=== PATIENT | female | born 1975 | race African-American/Black ===

== ENCOUNTER 2020-07-02 10:07 | Inpatient (IN) ==
[2020-07-02 11:24] LABS: Basophils % 0.1 % (0.0-0.8); Hematocrit 41.1 VOL% (35.7-47.0); Immature Granulocytes % 0.4 %; Immature Granulocytes Absolute 0.03 #; Lymphocytes # 1.2 10*3/uL (1.4-4.0); Lymphocytes % 16.9 % (21.3-54.2); Mean Corpuscular HGB Conc 34.1 GM/DL (32-36); Mean Platelet Volume 9.7 FL (9.6-12.0); Monocytes % 6.3 % (1.7-12.7); Neutrophils % 76.3 % (38.7-73.9); Platelet Count 196 T/CUMM (130-400); Red Blood Count 4.67 MC/CUMM (3.8-5.5); Red Cell Distribution Width 12.8 % (9.3-17.3); White Blood Count 7.3 T/CUMM (4-12)
[2020-07-02 11:42] LABS: PT Patient Result 10.7 SECS (9.8-11.9)
[2020-07-02 11:53] LABS: Albumin 3.4 G/DL (3.4-5.0); Bilirubin,Total 0.6 MG/DL (0.2-1.0); Calcium 7.9 MG/DL (8.5-10.1); Ferritin 470.2 ng/ml (8-252); Osmolality,Calculated 271.2 MOS/KG (273-304); Total Protein 7.5 G/DL (6.4-8.3)
[2020-07-02 12:03] LABS: Bacteria,Urine Moderate /HPF (Few); Bilirubin,Urine Negative (Negative); Blood, Urine Negative (Negative); Glucose,Urine (UA) Negative (Negative); Hyaline Casts,Urine 29 /LPF (0-3); Ketones,Urine 5 mg/dL (Negative); Mucus,Urine Few /LPF (Occasional); Nitrite,Urine Negative (Negative); Protein,Urine 30 MG/DL; RBC,Urine 2 /HPF (0-4); Squamous Epithelial Cell,Urine Occasional /HPF (0-10); Urine Appearance Slightly Hazy (Clear); Urine Color Amber (Yellow); Urine Specific Gravity 1.026 (1.001-1.035); Urine Urobilinogen < 2.0 EU/DL (0.2-1.0); WBC,Urine 3 /HPF (0-6)
[2020-07-02 12:14] LABS: Anisocytosis Slight; Platelet Estimate Normal
[2020-07-02] MEDS ORDERED: GLUCAGON 1 MG VIAL IM PRN (13:42)
[2020-07-02] MEDS ORDERED: DEXTROSE 50% 25 GM/50 ML VIAL IV PRN (13:42)
[2020-07-02] MEDS ORDERED: ACETAMINOPHEN 325 MG TABLET PO PRN (13:42)
[2020-07-02] MEDS ORDERED: ONDANSETRON 4 MG/2 ML VIAL IV PRN (13:42)
[2020-07-02] MEDS: INSULIN LISPRO 100 UNIT/ML SUBCUT SCH (15:50)
[2020-07-02] MEDS: DEXAMETHASONE 4 MG/1 ML VIAL IV SCH (16:00)
[2020-07-02] MEDS: ASCORBIC ACID 500 MG TABLET PO SCH ×2 (16:01→21:06)
[2020-07-02] MEDS ORDERED: SODIUM CHLORIDE 0.9% 1,000 ML IV PRN (16:01)
[2020-07-02] MEDS: FAMOTIDINE 20 MG TABLET PO SCH ×2 (16:01→21:05)
[2020-07-02] MEDS: ZINC GLUCONATE 50 MG TABLET PO SCH (16:01)
[2020-07-02] MEDS: CHOLECALCIFEROL 1,000 UNIT TABLET PO SCH (16:01)
[2020-07-02] MEDS: CETIRIZINE 10 MG TABLET PO SCH (16:02)
[2020-07-02] MEDS: SODIUM CHLORIDE 0.9% 1,000 ML IV SCH ×2 (16:03→23:45)
[2020-07-02] MEDS: ENOXAPARIN 40 MG/0.4 ML SYRINGE SUBCUT SCH (16:03)
[2020-07-02] MEDS ORDERED: AZITHROMYCIN INJ 500 MG in SODIUM CHLORIDE 0.9% 250 ML IV ONE (16:36)
[2020-07-02] MEDS ORDERED: REMDESIVIR 200 MG in SODIUM CHLORIDE 0.9% 210 ML IV ONE (18:00)
[2020-07-03 06:56] LABS: Basophils % 0.6 % (0.0-0.8); Hematocrit 40.4 VOL% (35.7-47.0); Hemoglobin 13.4 GM/DL (12.0-16.0); Immature Granulocytes % 0.6 %; Immature Granulocytes Absolute 0.02 #; Lymphocytes % 30.3 % (21.3-54.2); Mean Corpuscular HGB Conc 33.2 GM/DL (32-36); Mean Corpuscular Volume 88.2 FL (87-102); Mean Platelet Volume 9.6 FL (9.6-12.0); Monocytes % 8.2 % (1.7-12.7); Neutrophils % 60.3 % (38.7-73.9); Platelet Count 197 T/CUMM (130-400); Red Blood Count 4.58 MC/CUMM (3.8-5.5); Red Cell Distribution Width 12.6 % (9.3-17.3); White Blood Count 3.3 T/CUMM (4-12)
[2020-07-03 07:24] LABS: Alanine Aminotransferase 29 U/L (13-56); Alkaline Phosphatase 68 U/L (45-117); Aspartate Amino Transferase 34 U/L (0-37); Bilirubin,Total < 0.39 MG/DL (0.2-1.0); Blood Urea Nitrogen 12 MG/DL (7-18); Calcium 8.1 MG/DL (8.5-10.1); Estimated Glom Filtration Rate 162 ML/MIN; Glucose 172 MG/DL (74-106); Total Protein 7.3 G/DL (6.4-8.3)
[2020-07-03] MEDS: INSULIN LISPRO 100 UNIT/ML SUBCUT SCH ×5 (07:27→21:54)
[2020-07-03 07:31] LABS: Ferritin 430.6 ng/ml (8-252)
[2020-07-03 07:57] LABS: Hypochromasia 3+
[2020-07-03 07:58] LABS: Microcytosis 1+; Ovalocytes Few; Platelet Estimate Adequate; Schistocytes Slight
[2020-07-03] MEDS: AZITHROMYCIN 250 MG TABLET PO SCH (10:31)
[2020-07-03] MEDS: ZINC GLUCONATE 50 MG TABLET PO SCH (10:31)
[2020-07-03] MEDS: CHOLECALCIFEROL 1,000 UNIT TABLET PO SCH (10:31)
[2020-07-03] MEDS: CETIRIZINE 10 MG TABLET PO SCH (10:31)
[2020-07-03] MEDS: FAMOTIDINE 20 MG TABLET PO SCH ×3 (10:32→21:56)
[2020-07-03] MEDS: DEXAMETHASONE 4 MG/1 ML VIAL IV SCH (10:32)
[2020-07-03] MEDS: ASCORBIC ACID 500 MG TABLET PO SCH ×2 (10:32→21:54)
[2020-07-03] MEDS: REMDESIVIR 100 MG in SODIUM CHLORIDE 0.9% 230 ML IV SCH (10:37)
[2020-07-03] MEDS: SODIUM CHLORIDE 0.9% 1,000 ML IV SCH (12:32)
[2020-07-03] MEDS: ENOXAPARIN 40 MG/0.4 ML SYRINGE SUBCUT SCH (17:00)
[2020-07-03] MEDS: ATORVASTATIN 10 MG TABLET PO SCH (17:01)
[2020-07-03] MEDS: TRAVOPROST 0.004% OPH SOLN 2.5 ML BOTTLE BOTH EYES SCH (18:35)
[2020-07-03] MEDS: BRIMONIDINE 0.2% OPH SOLN 5 ML BOTTLE BOTH EYES SCH (21:54)
[2020-07-04] MEDS: AZITHROMYCIN 250 MG TABLET PO SCH (09:00)
[2020-07-04] MEDS: BRIMONIDINE 0.2% OPH SOLN 5 ML BOTTLE BOTH EYES SCH ×2 (09:00→20:49)
[2020-07-04] MEDS: FAMOTIDINE 20 MG TABLET PO SCH ×4 (09:01→20:50)
[2020-07-04] MEDS: CHOLECALCIFEROL 1,000 UNIT TABLET PO SCH (09:01)
[2020-07-04] MEDS: CETIRIZINE 10 MG TABLET PO SCH ×2 (09:01→09:45)
[2020-07-04] MEDS: ZINC GLUCONATE 50 MG TABLET PO SCH (09:01)
[2020-07-04] MEDS: metFORMIN 500 MG TABLET PO SCH (09:01)
[2020-07-04] MEDS: ASPIRIN CHEW 81 MG TABLET PO SCH (09:01)
[2020-07-04] MEDS: ATORVASTATIN 10 MG TABLET PO SCH (09:01)
[2020-07-04] MEDS: ASCORBIC ACID 500 MG TABLET PO SCH ×2 (09:01→20:49)
[2020-07-04] MEDS: DEXAMETHASONE 4 MG/1 ML VIAL IV SCH (09:03)
[2020-07-04] MEDS: REMDESIVIR 100 MG in SODIUM CHLORIDE 0.9% 230 ML IV SCH (09:04)
[2020-07-04] MEDS: INSULIN LISPRO 100 UNIT/ML SUBCUT SCH ×4 (09:17→20:49)
[2020-07-04] MEDS: SODIUM CHLORIDE 0.9% 1,000 ML IV SCH ×2 (09:46→16:26)
[2020-07-04] MEDS: ENOXAPARIN 40 MG/0.4 ML SYRINGE SUBCUT SCH (14:40)
[2020-07-04] MEDS: TRAVOPROST 0.004% OPH SOLN 2.5 ML BOTTLE BOTH EYES SCH (18:17)
[2020-07-05] MEDS: SODIUM CHLORIDE 0.9% 1,000 ML IV SCH ×3 (00:20→06:47)
[2020-07-05 06:51] LABS: Alanine Aminotransferase 29 U/L (13-56); Albumin 2.5 G/DL (3.4-5.0); Alkaline Phosphatase 59 U/L (45-117); Aspartate Amino Transferase 15 U/L (0-37); Bilirubin,Total < 0.39 MG/DL (0.2-1.0); Blood Urea Nitrogen 17 MG/DL (7-18); Estimated Glom Filtration Rate 154 ML/MIN; Ferritin 366.2 ng/ml (8-252); Glucose 114 MG/DL (74-106); Osmolality,Calculated 288.8 MOS/KG (273-304); Total Protein 6.2 G/DL (6.4-8.3)
[2020-07-05] MEDS: DEXAMETHASONE 4 MG/1 ML VIAL IV SCH (08:03)
[2020-07-05] MEDS: metFORMIN 500 MG TABLET PO SCH (08:03)
[2020-07-05] MEDS: BRIMONIDINE 0.2% OPH SOLN 5 ML BOTTLE BOTH EYES SCH (08:03)
[2020-07-05] MEDS: ASPIRIN CHEW 81 MG TABLET PO SCH (08:03)
[2020-07-05] MEDS: REMDESIVIR 100 MG in SODIUM CHLORIDE 0.9% 230 ML IV SCH (08:04)
[2020-07-05] MEDS: ATORVASTATIN 10 MG TABLET PO SCH (08:04)
[2020-07-05] MEDS: FAMOTIDINE 20 MG TABLET PO SCH ×2 (08:04)
[2020-07-05] MEDS: AZITHROMYCIN 250 MG TABLET PO SCH (08:05)
[2020-07-05] MEDS: ZINC GLUCONATE 50 MG TABLET PO SCH (08:05)
[2020-07-05] MEDS: CETIRIZINE 10 MG TABLET PO SCH ×2 (08:05)
[2020-07-05] MEDS: CHOLECALCIFEROL 1,000 UNIT TABLET PO SCH (08:05)
[2020-07-05] MEDS: ASCORBIC ACID 500 MG TABLET PO SCH (08:05)
[2020-07-05] MEDS: INSULIN LISPRO 100 UNIT/ML SUBCUT SCH (08:09)
[2020-07-05 11:47] VITALS: BP 124/79
== END 2020-07-05 12:03 | disposition home or self-care (01) | DRG 177 ==
LOC: N.ED 10:07 → N.EDINP 13:42 → N.2E 14:40
PROVIDERS: ADMIT Family Medicine; ATTEND Family Medicine